=== PATIENT | male | born 1950 | race Caucasian/White ===

== ENCOUNTER → 2023-12-30 16:27 | Outpatient (CLI) | payer MEDICARE, SELFPAY ==
--- NOTE | ~2023-12-30 | XR_ITS ---
EXAMINATION: XR lumbar spine min 4V DATE: 12/30/2023 17:18 INDICATION: Back pain. Failed spinal cord stimulator. TECHNIQUE: 5 views of lumbar spine were obtained. COMPARISON: None. FINDINGS: There is 8 degrees dextrocurvature of lumbar spine. There is 3 mm retrolisthesis of L1 on L 2, 5 mm retrolisthesis of L2 on L3, and 3 mm retrolisthesis of L3 on L4. There is 3 mm anterolisthesi s of L4 on L5. There are changes of anterior and posterior fusion procedures at L4-L5 with interbody devices and pedicle screws. There is fusion of the spinous processes of L2 and L3 with a fixation dev ice. There is mild chronic anterior wedging of T12 vertebral body. There is severely decreased disc h eight at L1-L2 and L2-L3, moderately decreased disc height at L3-L4, and severely decreased disc heig ht at L5-S1. There is multilevel severe facet joint osteoarthritis. IMPRESSION: 1. Severe lumbar spondylosis. 2. Posterior fusion at L2-L3 and anterior and posterior fusion procedures at L4-L5. Reviewed, dictated and finalized at location E. [employer] IMPRESSION: 1. Severe lumbar spondylosis. 2. Posterior fusion at L2-L3 and anterior and posterior fusion procedures at L4 -L5.
--- NOTE | ~2023-12-30 | XR_ITS ---
EXAMINATION: XR thoracic spine 3V DATE: 12/30/2023 17:18 INDICATION: Back pain. Failed spinal cord stimulator. TECHNIQUE: 3 views of thoracic spine standing were obtained. COMPARISON: None. FINDINGS: Bone alignment is normal. There is mild chronic anterior wedging of T11 and T12 vertebral b odies. There is mild to moderately decreased disc height at most levels in thoracic spine. There is s everely decreased disc height at T2-T3. There are endplate osteophytes at most levels. IMPRESSION: 1. Severe thoracic spondylosis. Reviewed, dictated and finalized at location E. [employer]
--- NOTE | ~2023-12-30 | XR_ITS ---
EXAMINATION: XR cervical spine 4-5V DATE: 12/30/2023 17:19 INDICATION: Neck pain. Failed spinal cord stimulator. TECHNIQUE: 5 views of cervical spine including standing views were obtained. COMPARISON: None. FINDINGS: There is 5 degrees levocurvature of cervicothoracic spine. There is 2 mm anterolisthesis of C4 on C5. Vertebral body heights are normal. There is severely decreased disc height at C3-C4, moder ately decreased disc height at C5-C6, and severely decreased disc height at C6-C7. There is multileve l facet joint osteoarthritis, severe on the left at C3-C4, C4-C5, and C5-C6. There is mild central ca nal stenosis at C3-C4, C4-C5, C5-C6, and C6-C7. No prevertebral soft tissue swelling. IMPRESSION: 1. Severe cervical spondylosis. Reviewed, dictated and finalized at location E. [employer]
== END ==
PROVIDERS: PCP Nurse Practitioner Family; Visit Provider Pain Medicine Pain Medicine
DX: T85.192A Other mechanical complication of implanted electronic neurostimulator of spinal cord electrode (lead), initial encounter (principal); M54.2 Cervicalgia; M43.02 Spondylolysis, cervical region; M43.04 Spondylolysis, thoracic region; M43.06 Spondylolysis, lumbar region; Z98.1 Arthrodesis status
CPT/HCPCS: 72050; 72072; 72110